=== PATIENT | female | born 1945 | race Caucasian/White ===

== ENCOUNTER 2021-01-04 06:06 | Emergency (ER) | payer MEDICARE ==
[2021-01-04] MEDS ORDERED: Sodium Chloride 0.9% 10 ML Syringe FLUSH PRN (06:09)
--- NOTE | 2021-01-04 06:15 | EDM.PDOC ---
ED HPI GENERAL MEDICAL PROBLEM - General Chief Complaint: Cardiovascular Problem Stated Complaint: FAST HEART RATE Time Seen by Provider: 01/04/21 06:08 Source of Information: Reports: Patient History Limitations: Reports: No Limitations - History of Present Illness INITIAL COMMENTS - FREE TEXT/NARRATIVE: Marquita is a 75-year-old female presenting to the ED for evaluation of tach ycardia. Patient was awakened from sleep at 0400 hrs. with onset of tachycardia causing some chest pressure, left arm pain radiating up into the left jaw, but denies any shortness of breath, nausea, or diaphoresis. Patient has a history significant for pacemaker and paroxysmal atrial fibrillation. She normally takes metoprolol has not taken it yet this morning. - Related Data Allergies Allergy/AdvReac Type Severity Reaction Status Date / Time ciprofloxacin Allergy Hives Verified 01/04/21 06:25 naproxen [From Aleve] Allergy Other Verified 01/04/21 06:25 Sulfa (Sulfonamide Allergy Hives Verified 01/04/21 06:25 Antibiotics) Home Meds: Home Meds Cetirizine [ZyrTEC] 10 mg PO DAILY 06/10/16 [History] Cyanocobalamin (Vitamin B12) [Vitamin B12] 1 ml IM Q30D 06/10/16 [History] Fluticasone Propionate [Flonase] 2 spray NS DAILY PRN 06/10/16 [History] Metoprolol Succinate [Toprol XL] 75 mg PO DAILY 06/10/16 [History] Pravastatin [Pravachol] 10 mg PO BEDTIME 06/10/16 [History] Simethicone 250 mg PO BID 06/10/16 [History] tiZANidine [Zanaflex] 4 mg PO Q6H PRN 06/10/16 [History] Acetaminophen [Tylenol Extra Strength] 500 mg PO BID 01/04/21 [History] Apixaban [Eliquis] 5 mg PO BID 01/04/21 [History] Chlorthalidone 25 mg PO DAILY 01/04/21 [History] Cholecalciferol (Vitamin D3) [Vitamin D3] 2,000 unit PO DAILY 01/04/21 [History] Fexofenadine/Pseudoephedrine [Nita-D 12 Hour] 1 tab PO BID PRN 01/04/21 [History] Losartan [Cozaar] 50 mg PO DAILY 01/04/21 [History] Magnesium Chloride [Slow-Mag] 71.5 mg PO DAILY 01/04/21 [History] Metoprolol Succinate 100 mg PO DAILY #30 tab.er.24h 01/04/21 [Rx] Potassium Chloride [Klor-Con 10] 10 meq PO DAILY 01/04/21 [History] Past Medical History HEENT History: Reports: Allergic Rhinitis, Impaired Vision Cardiovascular History: Reports: High Cholesterol, Hypertension Respiratory History: Reports: None Gastrointestinal History: Reports: Cholelithiasis, Chronic Constipation, Chronic Diarrhea, GERD, Irritable Bowel Syndrome Genitourinary History: Reports: UTI, Recurrent SECURITY CLERK History: Reports: Endometriosis, Musculoskeletal History: Reports: Arthritis, Fibromyalgia, Osteoporosis Neurological History: Reports: None Psychiatric History: Reports: None Endocrine/Metabolic History: Reports: None Hematologic History: Reports: B12 Deficiency Immunologic History: Reports: None Oncologic (Cancer) History: Reports: None Dermatologic History: Reports: None - Infectious Disease History Infectious Disease History: Reports: Chicken Pox, Measles, Mumps, Shingles - Past Surgical History Head Surgeries/Procedures: Reports: None Female Surgical History: Reports: Breast Reduction, Hysterectomy Endocrine Surgical History: Reports: None Neurological Surgical History: Reports: Other (See Below) Musculoskeletal Surgical History: Reports: None Social & Family History - Caffeine Use Caffeine Use: Reports: Tea ED ROS GENERAL - Review of Systems Review Of Systems: See Below Constitutional: Reports: No Symptoms HEENT: Reports: No Symptoms Respiratory: Reports: No Symptoms Cardiovascular: Reports: Chest Pain, Palpitations (Tachycardia) Endocrine: Reports: No Symptoms GI/Abdominal: Reports: No Symptoms : Reports: No Symptoms Musculoskeletal: Reports: No Symptoms Skin: Reports: No Symptoms Neurological: Reports: No Symptoms Psychiatric: Reports: No Symptoms Hematologic/Lymphatic: Reports: No Symptoms Immunologic: Reports: No Symptoms ED EXAM, GENERAL - Physical Exam Exam: See Below Exam Limited By: No Limitations General Appearance: Alert, No Apparent Distress, Anxious Eye Exam: Bilateral Eye: EOMI, PERRL Throat/Mouth: Normal Inspection, Normal Oropharynx, Normal Voice, No Airway Compromise Head: Atraumatic, Normocephalic Neck: Normal Inspection, Supple, Non-Tender, Full Range of Motion Respiratory/Chest: No Respiratory Distress, Lungs Clear, Normal Breath Sounds Cardiovascular: Normal Peripheral Pulses, Regular Rate, Rhythm, No Murmur, Tachycardia Peripheral Pulses: 2+: Radial (L), Radial (R), Posterior Tibial (L), Posterior Tibial (R) GI/Abdominal: Normal Bowel Sounds, Soft, Non-Tender Back Exam: Normal Inspection Extremities: Normal Inspection, Normal Range of Motion, No Pedal Edema, Normal Capillary Refill Neurological: Alert, Oriented, Normal Cognition, No Motor/Sensory Deficits Psychiatric: Normal Affect, Anxious Skin Exam: Warm, Dry, Intact, Normal Color Lymphatic: No Adenopathy #1 Interpretation EKG Date: 01/04/21 Time: 06:07 Rhythm: NSR Rate (Beats/Min): 97 [place]: Normal P-Wave: Enlarged (Left atrial enlargement) QRS: Normal ST-T: Other (Nonspecific ST repolarization with flattening in the lateral leads) QT: Normal Comparison: Change From Previous EKG (The sick sinus syndrome with junctional escape beats has been replaced with normal sinus rhythm now. Previous EKG was on 05/18/2019.) Course - Vital Signs Last Recorded V/S: Last Vital Signs Temp 36.8 C 01/04/21 06:20 Pulse 85 01/04/21 06:44 Resp 16 01/04/21 06:41 BP 142/73 H 01/04/21 06:44 Pulse Ox 96 01/04/21 06:41 - Orders/Labs/Meds Orders: Active Orders 24 hr Category Date Time Status EKG Documentation Completion [RC] ASDIRECTED Care 01/04/21 06:09 Active Sodium Chloride 0.9% [Saline Flush] Med 01/04/21 06:09 Active 10 ml FLUSH ASDIRECTED PRN Saline Lock Insert [OM.PC] Routine Oth 01/04/21 06:09 Ordered EKG 12 Lead [EK] Routine Ther 01/04/21 06:09 Ordered Medication Orders Sodium Chloride (Sodium Chloride 0.9% 10 Ml Syringe) 10 ml FLUSH ASDIRECTED PRN PRN Reason: Keep Vein Open Last Admin: 01/04/21 06:48 Dose: 10 ml Documented by: PREILOR Labs: Laboratory Tests 01/04/21 01/04/21 Range/Units 06:19 06:19 WBC 17.4 H (4.5-11.0) K/uL RBC 3.79 (3.30-5.50) M/uL Hgb 11.3 L (12.0-15.0) g/dL Hct 34.4 L (36.0-48.0) % MCV 91 (80-98) fL MCH 30 (27-31) pg MCHC 33 (32-36) % Plt Count 356 (150-400) K/uL Neut % (Auto) 88.0 H (36-66) % Lymph % (Auto) 7.9 L (24-44) % [place] % (Auto) 4.0 (2-6) % Eos % (Auto) 0.0 L (2-4) % Baso % (Auto) 0.1 (0-1) % Sodium 131 L (140-148) mmol/L Potassium 3.5 L (3.6-5.2) mmol/L Chloride 94 L (100-108) mmol/L Carbon Dioxide 25 (21-32) mmol/L Anion Gap 15.5 H (5.0-14.0) mmol/L BUN 23 H D (7-18) mg/dL Creatinine 1.2 H (0.6-1.0) mg/dL Est Cr Clr Drug Dosing 32.48 mL/min Estimated GFR (MDRD) 44 L (>60) Glucose 154 H (74-106) mg/dL Calcium 9.1 (8.5-10.1) mg/dL Magnesium 1.8 (1.8-2.4) mg/dL Total Bilirubin 0.4 (0.2-1.0) mg/dL AST 21 (15-37) U/L ALT 23 (12-78) U/L Alkaline Phosphatase 71 (46-116) U/L Troponin I < 0.017 (0.000-0.056) ng/mL Total Protein 7.6 (6.4-8.2) g/dL Albumin 3.8 (3.4-5.0) g/dL Globulin 3.8 H (2.3-3.5) g/dL Albumin/Globulin Ratio 1.0 L (1.2-2.2) Meds: Medications Generic Name Dose Route Start Last Admin Trade Name Freq PRN Reason Stop Dose Admin Sodium Chloride 10 ml 01/04/21 06:09 01/04/21 06:48 Sodium Chloride 0.9% 10 Ml Syringe FLUSH 10 ml ASDIRECTED PRN Administration Keep Vein Open Discontinued Medications Generic Name Dose Route Start Last Admin Trade Name Freq PRN Reason Stop Dose Admin Chlorthalidone 25 mg 01/04/21 06:25 Chlorthalidone 25 Mg Tab PO 01/04/21 06:26 ONETIME ONE Losartan Potassium 50 mg 01/04/21 06:25 01/04/21 06:44 Losartan 50 Mg Tab PO 01/04/21 06:26 50 mg ONETIME ONE Administration Metoprolol Succinate 75 mg 01/04/21 06:25 01/04/21 06:44 Metoprolol Succinate 50 Mg Tab.Er PO 01/04/21 06:26 75 mg ONETIME ONE Administration - Re-Assessments/Exams Free Text/Narrative Re-Assessment/Exam: 01/04/21 06:41 presents quite hypertensive with a pressure of 205/984. She has not taken any of her morning medications so I ordered chlorthalidone 25 mg p.o., metoprolol succinate 75 mg p.o., and Cozaar 50 mg p.o. which are her typical morning medications for her hypertension. She is in sinus rhythm with a rate of 80 bpm at this time. 01/04/21 07:00 viewed the patient's labs showing a leukocyte count at 17.4 with a hemoglobin of 11.3 and a hematocrit of 34.4. Platelet count is 356,000. The elevated leukocyte count is likely demargination. Her comprehensive metabolic panel is remarkable for a sodium of 131, potassium 3.5, chloride of 94, bicarbonate of 25 with a BUN of 23 and a creatinine of 1.2. Patient's glucose is 156. LFTs are normal. Calcium is normal. Troponin is less than 0.017. There is no evidence on EKG of any ST elevation or depression. The patient probably had tachycardic induced angina. My plan is to increase her metoprolol from 75 mg daily to 100 mg daily. Certainly she has enough blood pressure to support that and it may help prevent her heart from going too fast. She does have a pacemaker so I am not worried about get going to slow. She presented with a pressure of 205/94 and after getting her morning medications she is now 148/71. Increase in her metoprolol may actually help that as well. I encouraged patient follow-up with her primary care provider and update her on the change in medication. Indications return to the ED were discussed and she was discharged in satisfactory condition. Departure - Departure Time of Disposition: 07:02 Disposition: Home, Self-Care 01 Clinical Impression: Sinus tachycardia, Stable angina Hypertension Qualifiers: Hypertension type: primary hypertension Qualified Code(s): I10 - Essential (primary) hypertension Instructions: Managing Your Hypertension, Sinus Tachycardia Referrals: PCP,None [Primary Care Provider] - Forms: ED Department Discharge Care Plan Goals: I plan on increasing your metoprolol to 100 mg a day. This will hopefully keep your heart rate under control and lower your blood pressure to a more optimal level. There is a new prescription for you to fill this morning. Please let your primary care provider know that we increase the metoprolol to 100 mg a day. Certainly if you have an episode of tachycardia and/or chest pain please return to the ED for reevaluation. Everything looked good with your work-up today. Sepsis Event Note (ED) - Focused Exam Vital Signs: Vital Signs Temp Pulse Pulse Resp BP BP Pulse Ox 01/04/21 06:44 85 142/73 H 01/04/21 06:41 87 16 142/73 H 96 01/04/21 06:20 36.8 C 92 16 205/94 H 96 - Problem List & Annotations (1) Hypertension SNOMED Code(s): 47640391 Code(s): I10 - ESSENTIAL (PRIMARY) HYPERTENSION Status: Chronic Priority: High Current Visit: Yes Qualifiers: Hypertension type: primary hypertension Qualified Code(s): I10 - Essential (primary) hypertension (2) Sinus tachycardia SNOMED Code(s): 94028528 Code(s): R00.0 - TACHYCARDIA, UNSPECIFIED Status: Acute Priority: High Current Visit: Yes (3) Stable angina SNOMED Code(s): 017641688 Code(s): I20.8 - OTHER FORMS OF ANGINA PECTORIS Status: Acute Priority: M edium Current Visit: Yes - Problem List Review Problem List Initiated/Reviewed/Updated: Yes - My Orders Last 24 Hours: My Active Orders 01/04/21 06:09 EKG Documentation Completion [RC] ASDIRECTED Sodium Chloride 0.9% [Saline Flush] 10 ml FLUSH ASDIRECTED PRN Saline Lock Insert [OM.PC] Routine EKG 12 Lead [EK] Routine - Assessment/Plan Last 24 Hours: My Active Orders 01/04/21 06:09 EKG Documentation Completion [RC] ASDIRECTED Sodium Chloride 0.9% [Saline Flush] 10 ml FLUSH ASDIRECTED PRN Saline Lock Insert [OM.PC] Routine EKG 12 Lead [EK] Routine
[2021-01-04] MEDS ORDERED: Metoprolol Succinate 50 MG Tab.ER PO ONE (06:25)
[2021-01-04] MEDS ORDERED: Losartan 50 MG Tab PO ONE (06:25)
[2021-01-04] MEDS ORDERED: Chlorthalidone 25 MG Tab PO ONE (06:25)
[2021-01-04 06:42] VITALS: BP 142/73
[2021-01-04 06:49] VITALS: PULSE 85
== END 2021-01-04 07:15 | disposition home or self-care (01) ==
LOC: JP.ED 06:06
DX: I20.8 Other forms of angina pectoris (principal); R00.0 Tachycardia, unspecified; I10 Essential (primary) hypertension; E78.00 Pure hypercholesterolemia, unspecified; M19.90 Unspecified osteoarthritis, unspecified site; Z88.1 Allergy status to other antibiotic agents; Z88.2 Allergy status to sulfonamides; Z88.6 Allergy status to analgesic agent; Z79.01 Long term (current) use of anticoagulants; Z79.899 Other long term (current) drug therapy
CPT/HCPCS: 36415; 80053; 83735; 84484; 85025; 93005; 99285; A9270

== ENCOUNTER 2022-02-06 06:32 | Day surgery (SDC) | payer MEDICARE ==
[2022-02-06] MEDS ORDERED: Sodium Chloride 0.9% 10 ML Syringe FLUSH ONE (07:30)
[2022-02-06 08:35] VITALS: BP 179/79; PULSE 60
== END 2022-02-06 08:51 | disposition home or self-care (01) ==
LOC: JP.SDS 06:32
PROVIDERS: ATTEND Ophthalmology
DX: H25.12 Age-related nuclear cataract, left eye (principal)
CPT/HCPCS: 66984; J3490; V2632

== ENCOUNTER 2022-02-20 06:15 | Day surgery (SDC) | payer MEDICARE ==
[2022-02-20] MEDS ORDERED: Sodium Chloride 0.9% 10 ML Syringe FLUSH ONE (07:00)
[2022-02-20 08:03] VITALS: BP 197/77; PULSE 60
== END 2022-02-20 08:25 | disposition home or self-care (01) ==
LOC: JP.SDS 06:15
PROVIDERS: ATTEND Ophthalmology
DX: H25.11 Age-related nuclear cataract, right eye (principal); I10 Essential (primary) hypertension; K21.9 Gastro-esophageal reflux disease without esophagitis; F32.A Depression, unspecified
CPT/HCPCS: V2632

== ENCOUNTER 2022-12-20 08:54 | Emergency (ER) | payer MEDICARE ==
[2022-12-20 09:22] VITALS: BP 180/76; PULSE 67
== END 2022-12-20 10:00 | disposition home or self-care (01) ==
LOC: JP.ED 08:54
DX: L27.0 Generalized skin eruption due to drugs and medicaments taken internally (principal); T39.395A Adverse effect of other nonsteroidal anti-inflammatory drugs [NSAID], initial encounter; E78.00 Pure hypercholesterolemia, unspecified; I10 Essential (primary) hypertension; K21.9 Gastro-esophageal reflux disease without esophagitis; Z95.0 Presence of cardiac pacemaker; Z88.1 Allergy status to other antibiotic agents; Z88.7 Allergy status to serum and vaccine; Z88.2 Allergy status to sulfonamides; Z88.6 Allergy status to analgesic agent; Z88.8 Allergy status to other drugs, medicaments and biological substances; Z79.01 Long term (current) use of anticoagulants; Z79.899 Other long term (current) drug therapy
CPT/HCPCS: 99283

== ENCOUNTER 2023-10-30 06:41 | Day surgery (SDC) | payer MEDICARE ==
[2023-10-30] MEDS ORDERED: fentaNYL 100 MCG/2 ML SDV ONE (07:21)
[2023-10-30] MEDS ORDERED: Propofol 200 MG/20 ML SDV ONE (07:21)
[2023-10-30] MEDS: Sodium Chloride 0.9% 1,000 ML IV SCH (07:46)
[2023-10-30 09:35] VITALS: BP 177/71; PULSE 61
== END 2023-10-30 10:06 | disposition home or self-care (01) ==
LOC: JP.SDS 06:41
PROVIDERS: ATTEND Surgery
DX: B37.81 Candidal esophagitis (principal); K22.10 Ulcer of esophagus without bleeding; K21.9 Gastro-esophageal reflux disease without esophagitis; T18.128A Food in esophagus causing other injury, initial encounter; K22.89 Other specified disease of esophagus; R10.13 Epigastric pain; I10 Essential (primary) hypertension
CPT/HCPCS: 00731; 43239; J2704; J3010; J7030; 88305; 88312

== ENCOUNTER 2024-12-22 08:29 | Emergency (ER) | payer MEDICARE ==
[2024-12-22] MEDS: Na Phos,M-B/Na Phos,DI-B 60 ML, Mineral Oil 50 ML, Docusate Sodium 400 MG, Magnesium Ci... RECTAL ONE (10:17)
[2024-12-22 11:12] VITALS: BP 159/89; PULSE 71
== END 2024-12-22 11:30 | disposition home or self-care (01) ==
LOC: JP.ED 08:29
DX: K59.00 Constipation, unspecified (principal); I48.91 Unspecified atrial fibrillation; K21.9 Gastro-esophageal reflux disease without esophagitis; Z95.0 Presence of cardiac pacemaker; Z90.49 Acquired absence of other specified parts of digestive tract; Z90.710 Acquired absence of both cervix and uterus; Z88.1 Allergy status to other antibiotic agents; Z88.2 Allergy status to sulfonamides; Z88.8 Allergy status to other drugs, medicaments and biological substances; Z79.899 Other long term (current) drug therapy; Z88.6 Allergy status to analgesic agent
CPT/HCPCS: 99283; A9270